=== PATIENT | female | born 1955 | race Two or more races ===

== ENCOUNTER 2021-12-10 09:57 | Emergency (ER) | payer OTHER ==
[~2021-12-10] VITALS: Ht 157.5 cm; Wt 81.2 kg
[2021-12-10] MEDS ORDERED: PROTONIX40 MG PO (10:10)
[2021-12-10] MEDS ORDERED: OPTIMAL D31250 MCG PO (10:10)
[2021-12-10] MEDS ORDERED: BONIVA150 MG PO (10:11)
[2021-12-10] MEDS ORDERED: PROTONIX40 M1 PO (10:12)
[2021-12-10] MEDS ORDERED: TURMERIC 500 M1 EACH PO (10:12)
[2021-12-10] MEDS ORDERED: PEPCID AC20 MG PO (10:12)
[2021-12-10] MEDS ORDERED: OMEGA 3 1,0001 EACH PO (10:13)
[2021-12-10] MEDS ORDERED: CIDAFLEX TABLE1 EACH PO (10:13)
[2021-12-10] MEDS ORDERED: PROBIOTIC1 EAC2 PO (10:14)
[2021-12-10] MEDS ORDERED: FOLIC ACID20 MG PO (10:14)
== END 2021-12-10 18:12 | disposition designated cancer center or children's hospital (05) ==
LOC: ER 09:57
DX: R10.9 Unspecified abdominal pain (principal); K21.9 Gastro-esophageal reflux disease without esophagitis; Z85.038 Personal history of other malignant neoplasm of large intestine; Z88.6 Allergy status to analgesic agent; Z20.822 Contact with and (suspected) exposure to COVID-19